=== PATIENT | female | born 1950 | race Caucasian/White ===

== ENCOUNTER 2020-02-24 06:09 | Day surgery (SDC) | payer MEDICARE, OTHER ==
[~2020-02-24] VITALS: Ht 157.5 cm; Wt 75.4 kg
[2020-02-24] MEDS ORDERED: Lisinopril-Hct1 EAC4 PO (07:07)
--- NOTE | 2020-02-24 09:52 | NUR ---
02/24/20 0952 [place],Mirian CONTINUE TO CO PAIN. CONTINUING TO TITRATE FENTANYL AND PERCOCET GIVEN. VS REMAIN STABLE. TOLERATING PO FOOD AND FLUID. WILL CONTINUE TO TITRATE FOR PAIN.
== END 2020-02-24 10:50 | disposition home or self-care (01) ==
LOC: ORSCSDS 06:09
PROVIDERS: Orthopaedic Surgery
PROC: 0PSH04Z Reposition Right Radius with Internal Fixation Device, Open Approach (ICD-10-PCS; principal; 2020-02-24 07:30)
DX: S52.591A Other fractures of lower end of right radius, initial encounter for closed fracture (principal); I10 Essential (primary) hypertension; Z79.899 Other long term (current) drug therapy
CPT/HCPCS: A9270; C1713; J0690; J1100; J2250; J2370; J2405; J2704; J3010; J7120

== ENCOUNTER → 2022-02-14 | Outpatient (CLI) | payer MEDICARE, OTHER ==
[~2022-02-14] MED LIST: Lisinopril-Hct1 EAC4 PO
[2022-02-14 12:42] LABS: Source, Urine Clean Catch
[2022-02-14 15:48] LABS: Appearance, Urine Hazy (Clear); Bilirubin, Urine Neg (Neg); Blood, Urine 1+ (Neg); Color, Urine Yellow (P-Yellow); Glucose Qualitative, Urine Neg (Neg); Ketones, Urine Neg (Neg); Leukocyte Esterase, Urine 3+ (Neg); Nitrite, Urine Neg (Neg); Protein, Urine Neg (Neg); Specific Gravity, Urine 1.005 (1.003-1.022); Urobilinogen, Urine NORM (Normal)
[2022-02-14 16:12] LABS: Bacteria Mod /hpf; Squamous Epithelial Cells Rare /hpf (Few); White Blood Cells, Urine 25-50 /hpf (0-5)
== END | disposition home or self-care (01) ==
LOC: LAB 12:40 → LAB SHORT 12:40
PROVIDERS: Internal Medicine Endocrinology, Diabetes & Metabolism
DX: N32.89 Other specified disorders of bladder (principal)
CPT/HCPCS: 81001; 87077; 87086; 87186

== ENCOUNTER → 2023-02-25 | Outpatient (CLI) | payer MEDICARE, OTHER ==
[2023-02-26 11:59] LABS: Candida species (DNA Probe) Negative (NEGATIVE); G. vaginalis (DNA Probe) Negative (NEGATIVE); T. vaginalis (DNA Probe) Negative (NEGATIVE)
== END | disposition home or self-care (01) ==
LOC: LAB 15:24 → LAB SHORT 15:24
PROVIDERS: Obstetrics & Gynecology
DX: N76.0 Acute vaginitis (principal)
CPT/HCPCS: 87480; 87510; 87660

== ENCOUNTER → 2023-03-17 | Outpatient (CLI) | payer MEDICARE, OTHER ==
[2023-03-17 14:20] LABS: Source, Urine Clean Catch
[2023-03-17 15:52] LABS: Appearance, Urine Clear (Clear); Bilirubin, Urine Neg (Neg); Blood, Urine Neg (Neg); Glucose Qualitative, Urine Neg (Neg); Ketones, Urine Neg (Neg); Leukocyte Esterase, Urine Neg (Neg); Nitrite, Urine Neg (Neg); Protein, Urine Neg (Neg); Specific Gravity, Urine 1.015 (1.003-1.022); Urobilinogen, Urine NORM (Normal)
[2023-03-17 16:25] LABS: Color, Urine Pale Yellow (P-Yellow)
== END ==
LOC: LAB 14:17 → LAB SHORT 14:17
PROVIDERS: Obstetrics & Gynecology
DX: N32.89 Other specified disorders of bladder (principal)
CPT/HCPCS: 81003

== ENCOUNTER → 2024-05-14 | Outpatient (CLI) | payer MEDICARE, OTHER ==
[2024-05-14 13:47] LABS: Source, Urine Voided
[2024-05-14 14:46] LABS: Appearance, Urine Clear (Clear); Bilirubin, Urine Neg (Neg); Blood, Urine Neg (Neg); Glucose Qualitative, Urine Neg (Neg); Ketones, Urine Neg (Neg); Leukocyte Esterase, Urine Neg (Neg); Nitrite, Urine Neg (Neg); Protein, Urine Neg (Neg); Specific Gravity, Urine 1.005 (1.003-1.022); Urobilinogen, Urine NORM (Normal)
[2024-05-14 15:28] LABS: Color, Urine Pale Yellow (P-Yellow)
== END | disposition home or self-care (01) ==
LOC: LAB SHORT 13:45 → LAB 13:45
PROVIDERS: Obstetrics & Gynecology
DX: N32.89 Other specified disorders of bladder (principal)
CPT/HCPCS: 81003